=== PATIENT | female | born 1960 | race Caucasian/White ===

== ENCOUNTER → 2017-06-23 | Outpatient (CLI) | payer OTHER ==
--- NOTE | 2017-06-23 17:37 | PCVCIMAG ---
APPROVED REPORT Study performed: 06/23/2017 16:17:04 EXAM: Comprehensive 2D, Doppler, and color-flow Echocardiogram Patient Location: Echo lab Status: routine BSA: 2.07 HR: 42 bpmBP: 112/68 mmHg Rhythm: sinus arrhythmia Other Information Study Quality: Adequate Indications Abnormal ECG Atrial Fibrillation Bradycardia Pre-ablation 2D Dimensions LVEF(%): 67.24 (>50%) IVSd: 7.91 (7-11mm)LVOT Diam: 21.15 (18-24mm) LVDd: 50.22 mm PWd: 8.86 (7-11mm) LVDs: 31.41 (25-40mm) Left Atrium: 40.59 (27-40mm) Aortic Root: 27.22 mm LV Single Plane 4CH: 50.00 % LV Single Plane 2CH: 50.06 %Brambila's LVEF: 50.03 % Biplane EF: 50.6 % Volumes Left Atrial Volume (Systole) Single Plane 4CH: 88.19 mLSingle Plane 2CH: 41.55 mL Biplane LA Volume: 67.00 mLLA ESV Index: 33.00 mL/m2 Aortic Valve AoV Peak Chaim.: 1.31 m/s AO Peak Gr.: 10.08 mmHgLVOT Max P.56 mmHg LVOT Max V: 1.18 m/s MURIEL Vmax: 3.16 cm2 Mitral Valve E/A Ratio: 1.4 MV Decel. Time: 147.03 ms MV E Max Chaim.: 0.97 m/s MV A Chaim.: 0.68 m/s MV PHT: 42.64 ms IVRT: 106.11 ms TDI E/Lateral E': 10.78E/Medial E': 13.86 Medial E' Chaim.: 0.07 m/s Lateral E' Chaim.: 0.09 m/s Pulmonary Valve PV Peak Chaim.: 0.90 m/sPV Peak Gr.: 3.26 mmHg Pulmonary Vein P Vein S: 0.69 m/sP Vein A: 0.32 m/s P Vein D: 0.58 m/sP Vein A Dur.: 166.1 msec P Vein S/D Ratio: 1.19 Tricuspid Valve TR Peak Chaim.: 2.38 m/s TR Peak Gr.: 22.60 mmHg TV Vmax: 0.86 m/sPA Pressure: 30.00 mmHg Left Ventricle The left ventricle is normal size. There is normal LV segmental wall motion. There is normal left ventricular wall thickness. Left ventricular systolic function is low normal. Frequent arrhythmias can affect the assessment. LVEF is 50-55%. The left ventricular diastolic function is normal. Right Ventricle The right ventricle is normal size. The right ventricular systolic function is normal. Atria Left atrium is borderline dilated. The right atrium size is normal. Aortic Valve Aortic valve is trileaflet. Aortic valve leaflets are mildly sclerotic but open well. No aortic regurgitation is present. There is no aortic valvular stenosis. Mitral Valve The mitral valve is normal in structure. There is no mitral valve regurgitation noted. No evidence of mitral valve stenosis. Tricuspid Valve The tricuspid valve is normal in structure. Mild to moderate tricuspid regurgitation with a PA pressure of 30mmHg. Pulmonic Valve The pulmonary valve is normal in structure. There is no pulmonic valvular regurgitation. Great Vessels The aortic root is normal in size. The ascending aorta is normal in size. IVC is normal in size and collapses with >50% inspiration Pericardium There is no pericardial effusion. There is no pleural effusion. <Conclusion> Left ventricular systolic function is low normal. Frequent arrhythmias can affect the assessment. There is normal left ventricular wall thickness. LVEF is 50-55%. The left ventricular diastolic function is normal. The right ventricle is normal size. Left atrium is borderline dilated. Aortic valve is trileaflet. Aortic valve leaflets are mildly sclerotic but open well. There is no mitral valve regurgitation noted. Mild to moderate tricuspid regurgitation with a PA pressure of 30mmHg. There is no pericardial effusion.
== END | disposition home or self-care (01) ==
LOC: PCVCIMAG 16:01
PROVIDERS: ATTEND Internal Medicine Cardiovascular Disease
DX: Z01.810 Encounter for preprocedural cardiovascular examination (principal); I07.1 Rheumatic tricuspid insufficiency; I48.0 Paroxysmal atrial fibrillation; I10 Essential (primary) hypertension; I25.10 Atherosclerotic heart disease of native coronary artery without angina pectoris; E78.00 Pure hypercholesterolemia, unspecified; E66.01 Morbid (severe) obesity due to excess calories; K21.9 Gastro-esophageal reflux disease without esophagitis; R94.31 Abnormal electrocardiogram [ECG] [EKG]; Z82.49 Family history of ischemic heart disease and other diseases of the circulatory system; Z79.82 Long term (current) use of aspirin; Z90.710 Acquired absence of both cervix and uterus; Z87.891 Personal history of nicotine dependence; Z88.8 Allergy status to other drugs, medicaments and biological substances
CPT/HCPCS: 80061; 93005; 93306; G0463